=== PATIENT | male | born 2000 | race Asian ===

== ENCOUNTER 2023-02-14 18:44 | Inpatient (IN) | payer OTHER ==
[~2023-02-14] VITALS: Ht 167.6 cm; Wt 102.7 kg
[2023-02-14 19:59] LABS: HEMATOCRIT 44.6 % (42.0-52.0); HEMOGLOBIN 14.6 g/dl (13.5-17.5); MEAN CORPUSCULAR HEMOGLOBIN 28.2 pg (27.0-33.0); MEAN CORPUSCULAR HGB CONC 32.7 g/dl (32.0-36.5); MEAN CORPUSCULAR VOLUME 86.1 fl (80.0-96.0); PLATELET COUNT, AUTOMATED 244 10^3/uL (150-450); RED BLOOD COUNT 5.18 10^6/uL (4.30-6.10); WHITE BLOOD COUNT 7.8 10^3/uL (4.0-10.0)
[2023-02-14] MEDS ORDERED: HOME MED LIST COMPLETE! XX SCH (20:20)
[2023-02-14 20:21] LABS: ETHYL ALCOHOL (ETHANOL) < 0.003 % (0.000-0.010)
[2023-02-14 20:23] LABS: ACETAMINOPHEN LEVEL < 2.0 UG/ML (10.0-20.0); ALKALINE PHOSPHATASE 66 U/L (46-116); ALT/SGPT 20 U/L (7.0-40); AST/SGOT 20 U/L (<34); BILIRUBIN,DIRECT 0.2 MG/DL (<0.4); BILIRUBIN,TOTAL 0.4 MG/DL (0.3-1.2); BLOOD UREA NITROGEN 14 MG/DL (9-23); CALCIUM LEVEL 9.3 MG/DL (8.5-10.1); CARBON DIOXIDE LEVEL 25 MMOL/L (20-31); CHLORIDE LEVEL 103 MMOL/L (98-107); CREATININE FOR GFR 0.99 MG/DL (0.70-1.30); GLOMERULAR FILTRATION RATE > 60.0 (>60); GLUCOSE, FASTING 87 MG/DL (60-100); POTASSIUM SERUM 4.1 MMOL/L (3.5-5.1); SALICYLATE LEVEL < 3.0 MG/DL (<30); SODIUM LEVEL 135 MMOL/L (136-145); TOTAL PROTEIN 7.9 G/DL (5.7-8.2)
[2023-02-14 20:25] LABS: THYROID STIMULATING HORMONE 1.304 uIU/ML (0.55-4.78)
[2023-02-14 22:28] LABS: BARBITURATES URINE NEGATIVE (NEGATIVE); COCAINE METABOLITE URINE NEGATIVE (NEGATIVE); METHADONE URINE NEGATIVE (NEGATIVE); OPIATES URINE NEGATIVE (NEGATIVE); PHENCYCLIDINE URINE NEGATIVE (NEGATIVE)
[2023-02-14 22:29] LABS: AMPHETAMINES LEVEL URINE NEGATIVE (NEGATIVE); BENZODIAZEPINES URINE NEGATIVE (NEGATIVE); CANNABINOIDS URINE NEGATIVE (NEGATIVE)
[2023-02-14] MEDS ORDERED: ACETAMINOPHEN TAB 650MG DOSE (2X325MG) PO PRN (22:55)
[2023-02-14] MEDS ORDERED: MOM 30ML SUSPENSION UDC PO PRN (22:55)
[2023-02-14] MEDS ORDERED: MAALOX 30 ML SUSP *UDC PO PRN (22:55)
[2023-02-14] MEDS ORDERED: traZODone 50 MG TAB PO PRN (22:55)
[2023-02-15 03:04] VITALS: BP 126/89
[2023-02-15] MEDS: SERTRALINE HCL 25 MG TABLET PO SCH (10:10)
[2023-02-15 16:20] VITALS: BP 137/76
[2023-02-16 06:33] VITALS: BP 124/60
[2023-02-16] MEDS: SERTRALINE HCL 25 MG TABLET PO SCH (08:38)
[2023-02-16 16:11] VITALS: BP 129/72
[2023-02-17 06:04] VITALS: BP 113/74
[2023-02-17] MEDS: SERTRALINE HCL 25 MG TABLET PO SCH (08:21)
[2023-02-17 17:37] VITALS: BP 125/76
[2023-02-17 17:41] VITALS: BP 148/78
[2023-02-18 06:37] VITALS: BP 131/86
[2023-02-18] MEDS: SERTRALINE HCL 25 MG TABLET PO SCH (08:10)
[2023-02-18] MEDS ORDERED: SERT25TA21 PO (08:17)
== END 2023-02-18 09:30 | disposition home or self-care (01) | DRG 885 ==
LOC: EDBD 18:44 → M ED 18:44 → M PSY 21:52 → UNDOADMIN 21:52 → M ED INP 21:52
PROVIDERS: ADMIT Student in an Organized Health Care Education/Training Program; ATTEND Student in an Organized Health Care Education/Training Program
DX: F32.0 Major depressive disorder, single episode, mild (principal); R45.851 Suicidal ideations; Z87.820 Personal history of traumatic brain injury; F42.9 Obsessive-compulsive disorder, unspecified; Z20.822 Contact with and (suspected) exposure to COVID-19; Z88.6 Allergy status to analgesic agent; Z81.8 Family history of other mental and behavioral disorders; Z62.810 Personal history of physical and sexual abuse in childhood